=== PATIENT | female | born 1990 | race Caucasian/White ===

== ENCOUNTER 2020-05-10 17:44 | Outpatient (CLI) | payer SELFPAY ==
[2020-05-10 18:05] LABS: Basophils % 0.4 %; Eosinophils # 0.3 10^3/uL (0.0-0.8); Eosinophils % 2.6 %; Hematocrit 44.1 % (37.0-47.0); Hemoglobin 14.4 g/dL (11.5-15.3); Lymphocytes # 3.4 10^3/uL (0.8-4.8); Lymphocytes % 34.4 %; Mean Corpuscular HGB Conc 32.7 g/dL (30.0-36.0); Mean Corpuscular Hemoglobin 29.6 pg (28.0-34.0); Mean Corpuscular Volume 90.6 fL (81-99); Mean Platelet Volume 10.8 fL (7.4-10.4); Monocytes # 0.7 10^3/uL (0.2-0.9); Monocytes % 6.6 %; Neutrophils # 5.5 10^3/uL (1.8-7.7); Neutrophils % 55.7 %; Nucleated Red Blood Cells % 0 %; Platelet Count 213 10^3/cmm (130-400); Red Blood Count 4.87 10^6/uL (4.1-5.3); Red Cell Distribution Width 12.2 % (12.1-15.1); White Blood Count 9.8 10^3/uL (4.0-10.0)
[2020-05-10 18:45] LABS: Alanine Aminotransferase 32 U/L (0-33); Albumin Level 4.6 g/dL (3.5-5.2); Alkaline Phosphatase 92 IU/L (35-105); Anion Gap 15.6 (5-19); Aspartate Amino Transferase 22 U/L (0-32); Blood Urea Nitrogen 9 mg/dL (6-20); Calcium 9.4 mg/dL (8.5-10.5); Carbon Dioxide 22 mmol/L (22-29); Chloride 102 mmol/L (98-107); Globulin 2.7 g/dL (1.3-4.6); Glomerular Filtration Rate 84.2 mL/min (90-130); Glucose 101 mg/dL (65-115); Lipase 25 U/L (13-60); Osmolality Calculated 278 mOsm/kg (285-295); Potassium 3.6 mmol/L (3.5-5.1); Sodium 136 mmol/L (136-145); Total Bilirubin 0.2 mg/dL (0.15-1.2); Total Protein 7.3 g/dL (6.6-8.7)
[2020-05-10 21:31] LABS: Erythrocyte Sedimentation Rate 3 mm/hr (0-15)
== END 2020-05-10 17:45 | disposition home or self-care (01) ==
LOC: LAB 17:46
PROVIDERS: PCP Family Medicine; Visit Provider Nurse Practitioner Family
DX: R10.30 Lower abdominal pain, unspecified (principal)
CPT/HCPCS: 36415; 80053; 83690; 85025; 85651

== ENCOUNTER 2020-05-12 17:32 | Outpatient (CLI) | payer SELFPAY | END 2020-05-12 17:33 | disposition home or self-care (01) | LOC: LAB 17:33 | PROVIDERS: PCP Family Medicine; Visit Provider Nurse Practitioner Family | DX: R10.30 Lower abdominal pain, unspecified (principal) | CPT/HCPCS: 82274; 87177; 87209; 87493; 87506 ==

== ENCOUNTER 2020-05-23 07:16 | Day surgery (SDC) | payer SELFPAY ==
[2020-05-22 11:41] VITALS: BMI 28.0
[2020-05-23 07:30] VITALS: BP 114/76; PULSE 85; RESP 18; TEMP 36.3; O2SAT 99
[2020-05-23] MEDS: sodium chloride 0.9% 1,000 ML 30 ML IV (07:41)
[2020-05-23 07:45] LABS: OR HCG Qualitative Urine Negative (Negative)
--- NOTE | 2020-05-23 07:57 | W.PM.OPSUD ---
Surgery/Procedure H&P Update DATE OF PROCEDURE: May 23, 2020 DATE H&P PERFORMED: 05/03/20 H&P UPDATE INFORMATION: I have reviewed H&P completed within last 30 days, I have examined patient prior to procedure and No changes to prior documentation PREOP DIAGNOSIS: Bleeding per rectum and bloating PRIMARY INDICATION FOR PROCEDURE: The same PLANNED PROCEDURE: Operation Date: 05/23/20 08:30 Proposed Procedures p EGD/Colon 50552 [id number] R10.13 K62.5(Not Applicable) - Yadiel York MD s Colonoscopy(Not Applicable) - Yadiel York MD
--- NOTE | 2020-05-23 08:01 | ANES.PREANE2 ---
Pre-Anesthetic Assessment Pre-Anesthetic Assessment: Height/Weight: Height 1.6 m Weight 71.668 kg Temp Pulse Resp BP Pulse Ox 97.4 F L 85 18 114/76 99 05/23/20 07:30 05/23/20 07:30 05/23/20 07:30 05/23/20 07:30 05/23/20 07:30 Preop Diagnosis: Bleeding per rectum Proposed Procedure: Operation Date: 05/23/20 08:30 Proposed Procedures p EGD/Colon 52098 44366 R10.13 K62.5(Not Applicable) - Yadiel York MD s Colonoscopy(Not Applicable) - Yadiel York MD Last intake: Intake Last Liquid Date 05/22/20 Last Liquid Time 23:00 Last Solid Date 05/21/20 Last Solid Time 22:00 Social: Social History: Tobacco and No alcohol Exam: Pre-Anes Outpt Exam: alert, oriented x 3, clear to auscultation bilaterally and regular rate & rhythm Airway: Submandibular: WNL Cervical ROM: WNL MP: 2 Dentition: Other (teeth ok) History/ROS: No significant history except as noted Pulmonary: Pulmonary: None reported CV/HEM: CV/HEM: None reported : : None reported Hepatic: Hepatic: None reported GI: GI: GERD (occ) Metabolic: Metabolic: None reported Musc/skel: Musc/skel: None reported Neuropsych: Neuropsych: None reported Anesthetic Plan: ASA status: 2 Anesthesia: Anesthesia Evaluation and MAC Risk of > 500 ml blood loss (7ml/kg in children): No Meds/Allergies Current Medications: Current Medications Generic Name Dose Route Start Last Admin Trade Name Freq PRN Reason Stop Dose Admin Sodium Chloride 1,000 mls @ 30 ml s/hr 05/23/20 07:30 05/23/20 07:41 Sodium Chloride 0.9% IV 30 mls/hr .Q24H THERESA Administration PFSH Anesthesia PFSH: Medical History Abdominal bloating Blood in the stool Family history of colon cancer Hemorrhoids Lower abdominal pain Family History Grandmother Cancer colon cancer Denies family history of Anesthesia complication Bleeding disorder Social History Smoking and tobacco status: current every day smoker Alcohol intake: never Adopted: No Caregiver/support person: Yes Lives independently: Yes Household members: spouse Housing: House Marital status: service: No Current occupational status: employed Current occupational exposures/hazards: No Pets and animals: No History of recent travel: No Sexually active: Yes Current gender identity: Female Neha/Denominational: Orthodox Female Reproductive History: Date of last menstrual period: 05/07/20 Data Anesthesia Other Labs: Laboratory Results - last 48 hr 05/23/20 07:43 Urine HCG, Qual Negative Cardiac Studies: No Data to Display
[2020-05-23] MEDS: ondansetron 2 mg/ML SDV 2 mL 4 MG IVP (08:07)
[2020-05-23 09:09] VITALS: BP 109/71; PULSE 86; RESP 14; TEMP 36.2; O2SAT 96
--- NOTE | 2020-05-23 09:12 | ANE.PACU2 ---
Inpatient post-anesthesia follow up: Airway intact: Yes Vital signs: Temperature 97.4 F Pulse Rate 85 Respiratory Rate 18 Blood Pressure 114/76 Pulse Oximetry 99 Oxygen Delivery Me thod Room Air Oxygen Flow Rate Fraction of Inspir ed Oxygen Hydration adequate: Yes Nausea and vomiting: Yes Pain level: 1 Mental status: Baseline
[2020-05-23 09:24] VITALS: BP 131/93; PULSE 80; RESP 18; TEMP 36.3; O2SAT 98
[2020-05-24 06:09] LABS: H. Pylori / CLO Test Negative
== END 2020-05-23 09:44 | disposition home or self-care (01) ==
PROVIDERS: Anesthesiology; PCP Family Medicine; Visit Provider Surgery
PROC: 0DJ08ZZ Inspection of Upper Intestinal Tract, Via Natural or Artificial Opening Endoscopic (ICD-10-PCS; CPT 43235; principal; 2020-05-23 08:30)
PROC: 0DJD8ZZ Inspection of Lower Intestinal Tract, Via Natural or Artificial Opening Endoscopic (ICD-10-PCS; CPT 45378; 2020-05-23 08:30)
DX: K62.5 Hemorrhage of anus and rectum (principal); R14.0 Abdominal distension (gaseous); K21.9 Gastro-esophageal reflux disease without esophagitis; K44.9 Diaphragmatic hernia without obstruction or gangrene; K29.70 Gastritis, unspecified, without bleeding; F17.210 Nicotine dependence, cigarettes, uncomplicated
CPT/HCPCS: 12345; 43239; 45378; 84703; 87077; J2405; J2704; J7030

== ENCOUNTER 2020-05-28 07:10 | Outpatient (CLI) | payer SELFPAY ==
--- NOTE | 2020-05-28 07:15 | US_ITS ---
WS: [id number] ULTRASOUND ABDOMEN LIMITED CLINICAL INFORMATION: FATTY DYSPEPSIA COMPARISON: None. FINDINGS: Liver Size: Normal. Craniocaudal length: 15.3 cm. Echogenicity: Normal. Surface nodularity: None. Mass (size and location): None. Bile ducts Intrahepatic ducts: Normal. Common bile duct diameter: 0.4 cm. Gallbladder Small amount of fluid adjacent to the gallbladder measuring 2.1 x 1.5 x 1.4 CM. Gallstones: None. Gallbladder sludge: None. Gallbladder wall thickening: None. Pericholecystic fluid: Trace Sonographic Guadarrama sign: Absent. Pancreas Normal as visualized. Right kidney: Normal. Hydronephrosis: None. Size: 10.5 cm x 4.3 cm x 3.9 cm. Abdominal aorta and IVC Visualized portions are normal. Ascites: None. US/US gall bladder [id number] IMPRESSION: 1. Small amount of fluid adjacent to the gallbladder measuring 2.1 x 1.5 x 1.4 cm. However no gallbladder wall thickening or cholelithiasis. Gallbladder func tion can be further evaluated with HIDA scan if indicated. 2. Normal common bile duct. 3. Abdomen otherwise normal
== END 2020-05-28 07:11 | disposition home or self-care (01) ==
LOC: RAD 07:11
PROVIDERS: PCP Family Medicine; Visit Provider Surgery
DX: R10.13 Epigastric pain (principal)
CPT/HCPCS: 76705

== ENCOUNTER 2020-06-08 09:11 | Outpatient (CLI) | payer SELFPAY ==
--- NOTE | 2020-06-08 10:00 | NM_ITS ---
WS: [id number] NUCLEAR MEDICINE HIDA SCAN WITH GALLBLADDER EJECTION FRACTION HISTORY: abdominal pain COMPARISON: Gallbladder ultrasound 05/28/2020 TECHNIQUE: The patient was intravenously injected with 8.8 mCi of TC99m Mebrofenin. Immediate imaging over the right upper quadrant was followed by 5 minute image and additional images for a total of 60 minutes. Normal uptake of radiotracer throughout the liver. Activity identified in the gallbladder at 50 minutes and well distended by 60 minutes. Activity in the proximal small bowel was seen by 20 minutes. Good washout of the radiotracer from the liver by 60 minutes. The patient then drank 8 ounces of Ensure Plus. Ejection fraction at 60 minutes was 44%. Normal GB ej ection fraction is 35-75%. Post fatty meal symptoms: None. NM/NM hepatobiliary w phar* [id number] IMPRESSION: 1. Normal HIDA scan. 2. Normal gallbladder ejection fraction.
== END 2020-06-08 09:12 | disposition home or self-care (01) ==
LOC: RAD 09:12
PROVIDERS: PCP Family Medicine; Visit Provider Surgery
DX: R10.9 Unspecified abdominal pain (principal)
CPT/HCPCS: 78227; A9537

== ENCOUNTER → 2022-01-21 10:34 | Outpatient (BNVA) | payer BC, MEDICAID, SELFPAY | PROVIDERS: PCP Family Medicine; Visit Provider Nurse Practitioner Women's Health | DX: N92.6 Irregular menstruation, unspecified (principal) | CPT/HCPCS: 81025; 84702; 85025; 86850; 86900 ==

== ENCOUNTER → 2022-02-11 10:39 | Outpatient (BNVA) | payer BC, MEDICAID, SELFPAY | PROVIDERS: PCP Family Medicine; Visit Provider Obstetrics & Gynecology | DX: Z34.90 Encounter for supervision of normal pregnancy, unspecified, unspecified trimester (principal) | CPT/HCPCS: 80307; 84315; 86592; 86762; 86803; 87086; 87340; 87806 ==

== ENCOUNTER → 2022-02-18 09:20 | Outpatient (BNVA) | payer BC, MEDICAID, SELFPAY | PROVIDERS: PCP Family Medicine; Visit Provider Obstetrics & Gynecology | DX: Z34.80 Encounter for supervision of other normal pregnancy, unspecified trimester (principal); Z12.4 Encounter for screening for malignant neoplasm of cervix | CPT/HCPCS: 84315; 87491; 87591; 87624 ==

== ENCOUNTER 2022-05-08 14:54 | Outpatient (CLI) | payer BC, MEDICAID, SELFPAY ==
--- NOTE | 2022-05-08 15:00 | US_ITS ---
WS: [id number] ULTRASOUND OB FOCUSED HISTORY: Follow-up anatomy scan. Reevaluate heart, cord insertion enhance. COMPARISON: 04/10/2022 Single intrauterine gestation in transverse presentation. head is on the maternal RIGHT. Cervix is closed measuring 4.8 cm. Placenta is anterior, no previa or abruption. Grade 1 placenta. Normal a mniotic fluid. heart rate at 136 BPM. Four-chamber heart and outflow tracts are negative. No abnormality is identified. Both hands are iden tified and normal position. Normal cord insertion [place]. US/[place] [id number] IMPRESSION: 1. Additional imaging of the heart including outflow tracts demonstrates no abnormality. 2. Both hands are identified. 3. Normal cord insertion.
== END 2022-05-08 14:55 | disposition home or self-care (01) ==
PROVIDERS: PCP Family Medicine; Visit Provider Obstetrics & Gynecology
DX: Z34.90 Encounter for supervision of normal pregnancy, unspecified, unspecified trimester (principal); Z36.3 Encounter for antenatal screening for malformations
CPT/HCPCS: 76805; 76816

== ENCOUNTER → 2022-06-03 13:04 | Outpatient (BNVA) | payer BC, MEDICAID, SELFPAY | PROVIDERS: PCP Family Medicine; Visit Provider Obstetrics & Gynecology | DX: Z34.90 Encounter for supervision of normal pregnancy, unspecified, unspecified trimester (principal) | CPT/HCPCS: 82950; 84315; 85027 ==

== ENCOUNTER → 2022-06-11 08:17 | Outpatient (BNVA) | payer BC, MEDICAID, SELFPAY | PROVIDERS: PCP Family Medicine; Visit Provider Obstetrics & Gynecology | DX: Z34.90 Encounter for supervision of normal pregnancy, unspecified, unspecified trimester (principal) | CPT/HCPCS: 82951; 82952 ==

== ENCOUNTER → 2022-06-30 09:40 | Outpatient (BNVA) | payer BC, MEDICAID, SELFPAY | PROVIDERS: PCP Family Medicine; Visit Provider Obstetrics & Gynecology | DX: Z34.80 Encounter for supervision of other normal pregnancy, unspecified trimester (principal) | CPT/HCPCS: 76816; 84315 ==

== ENCOUNTER → 2022-07-28 08:53 | Outpatient (BNVA) | payer BC, MEDICAID, SELFPAY | PROVIDERS: PCP Family Medicine; Visit Provider Obstetrics & Gynecology | DX: Z34.90 Encounter for supervision of normal pregnancy, unspecified, unspecified trimester (principal) | CPT/HCPCS: 84315; 87081 ==

== ENCOUNTER 2022-08-26 16:24 | Inpatient (IN) | payer BC, MEDICAID, SELFPAY ==
[2022-08-26] VITALS (47 sets, daily range): BP systolic 105–148; BP diastolic 59–98; PULSE 72–125; RESP 16–19; TEMP 36.2–36.8; O2SAT 98–100; BMI 29.4
[2022-08-26 16:21] LABS: Basophils % 0.3 %; Eosinophils # 0.1 10^3/uL (0.0-0.8); Eosinophils % 0.8 %; Hematocrit 34.3 % (37.0-47.0); Hemoglobin 11.8 g/dL (11.5-15.3); Lymphocytes # 2.4 10^3/uL (0.8-4.8); Lymphocytes % 20.7 %; Mean Corpuscular HGB Conc 34.4 g/dL (30.0-36.0); Mean Corpuscular Hemoglobin 30.3 pg (28.0-34.0); Mean Corpuscular Volume 88.2 fl (81-99); Mean Platelet Volume 11.4 fL (7.4-10.4); Monocytes # 0.6 10^3/uL (0.2-0.9); Monocytes % 4.8 %; Neutrophils # 8.56 10^3/uL (1.8-7.7); Neutrophils % 72.8 %; Nucleated Red Blood Cells % 0 %; Platelet Count 157 10^3/cmm (130-400); Red Blood Count 3.89 10^6/uL (4.1-5.3); White Blood Count 11.8 10^3/uL (4.0-10.0)
[2022-08-26] MEDS: fentaNYL 50 mcg/mL INJ 2mL IVP ×2 (20:06→21:11)
[2022-08-26] MEDS: dextrose 5%-lactated ringers 1,000 ML 125 ML IV (20:10)
[2022-08-26] MEDS: lactated ringers 1,000 ML 999 ML IV (21:10)
--- NOTE | 2022-08-26 22:28 | P.ANESASSM_ITS ---
Pre-Anesthetic Assessment Height/Weight: Height 1.6 m Weight 75.296 kg Temp Pulse Resp BP Pulse Ox O2 Del Method 97.2 F L 105 H 19 H 134/88 98 08/26/22 21:17 08/26/22 22:26 08/26/22 21:11 08/26/22 22:22 08/26/22 22:26 08/26/22 16:15 Preop Diagnosis: Bleeding per rectum and bloating Labor epidural Familial anesthetic complications: none Was Beta Vel taken within 24 hours: N/A Was Clonidine taken within 24 hours: N/A Social Tobacco and No alcohol Exam alert, oriented x 3, clear to auscultation bilaterally and regular rate & rhythm Airway Submandibular: within normal limits Cervical ROM: within normal limits Mallampati: Class II Pulmonary None reported CV/HEM None reported None reported Hepatic None reported GI Gastroesophageal Reflux Disease Metabolic None reported Musc/skel None reported Neuropsych None reported Anesthetic Plan ASA status: 2 Anesthesia: Anesthesia Evaluation, Eval. for regional block and Regional (specify below) Other: labor epidural Medications/Allergies Home Medications Medication Instructions Recorded Confirmed Last Taken Type prenat.vits,sebastian,upe-wwsu-rqrkn 1 tab PO DAILY 01/21/22 08/25/22 08/25/22 10:00 History acetaminophen 500 mg oral powder 1,000 mg PO Q6H PRN pain 02/11/22 08/25/22 Unknown History packet (Tylenol Extra Strength) pantoprazole 40 mg tablet,delayed 40 mg PO DAILY PRN gerd 06/03/22 08/25/22 Unknown History release (Protonix) breast pump (Pump In Style #1 ea 06/16/22 08/25/22 Unknown Rx Advanced breast pump) ferrous sulfate 325 mg (65 mg 325 mg PO BID 06/16/22 08/25/22 08/25/22 10:00 History iron) tablet,delayed release Allergies Allergy/AdvReac Type Severity Reaction Status Date / Time No Known Allergies Allergy Verified 08/25/22 08:51 Current Medications Generic Name Dose Route Start Last Admin Trade Name Mayank PRN Reason Stop Dose Admin Fentanyl 25 - 100 mcg 08/26/22 16:08 08/26/22 21:11 Fentanyl 50 Mcg/Ml Inj 2ml IVP 50 mcg Q1H PRN Administration SEVERE PAIN Dextrose/Lactated Ringer's 1,000 mls @ 125 mls/hr 08/26/22 16:15 08/26/22 20:10 Dextrose 5%-Lactated Ringers IV 125 mls/hr .Q8H THERESA Administration Lactated Ringer's 1,000 mls @ 999 mls/hr 08/26/22 21:10 08/26/22 21:10 Lactated Ringers IV 999 mls/hr .Q1H1M PRN Administration See label comments PFSH Anesthesia Medical History GERD (gastroesophageal reflux disease) Symptoms since her 20s which is controlled with as needed Protonix. No pertinent past medical history Denies diabetes, asthma, hypertension, seizures, DVT/PE PCP: None Surgical History H/O colonoscopy 2019---gastritis, GERD, hiatal hernia---by Dr. York at [facility] [place]---patient had endoscopy and colonoscopy. Colonoscopy was normal per patient Family History Mother Hypertension Grandmother Diabetes maternal great grandmother Colon cancer maternal great grandmother Denies family history of Ovarian cancer Heart disease Hypercholesteremia Breast cancer Uterine cancer Thyroid disease Stroke Social History Smoking and tobacco status: never smoked Female Reproductive History Date of last menstrual period: 05/07/20 : 4 Data Anesthesia : 08/26/22 15:40 Short CBC 08/26/22 Range/Units 15:40 WBC 11.8 H (4.0-10.0) 10^3/uL Hgb 11.8 (11.5-15.3) g/dL Hct 34.3 L (37.0-47.0) % MCV 88.2 (81-99) fl Plt Count 157 (130-400) 10^3/cmm Neut % (Auto) 72.8 % Neut # (Auto) 8.56 H (1.8-7.7) 10^3/uL Cardiac Studies: No Data to Display Anesthesia Procedures Date of Procedure 08/26/22 Epidural Time Out Performed: Yes Consents Signed: Procedure Consent Consent: from patient, risks and benefits reviewed and patient agrees to proceed Lumbar Level: L3-L4 Epidural position: sitting Epidural procedure: sterile prep of area, 1% lidocaine to numb the area, neg for paresthesia, test dose given, 1.5% xylocaine 1:200k epi (3ml), 0.2% Ropivacaine bolus ml (4 ml), no systemic response, sterile dressing applied, L.U.D. no apparent complications and 0.2% Ropiavacaine @ mls/hr (13ml/hr) Additional Comments: 100mcg fentanyl bolus Other Information catheter placed at 11 cm, negative for test dose, bolus given
[2022-08-27] VITALS (36 sets, daily range): BP systolic 110–137; BP diastolic 59–93; PULSE 72–196; RESP 15; TEMP 36.1–36.7
[2022-08-27] MEDS: oxytocin 30 UNIT/500 ML BAG 600 UNIT IV (01:31)
--- NOTE | 2022-08-27 02:03 | PM.OPHPUD ---
Labor & Delivery H&P Update Date of Procedure: August 27, 2022 Date H&P Performed: 08/25/22 H&P update information: I have reviewed H&P completed within last 30 days, I have examined patient prior to procedure and No changes to prior documentation Admission Diagnosis: Preop diagnosis: Bleeding per rectum and bloating Related Problem List Diagnoses (1) Anemia affecting in third trimester: (2) Cystic fibrosis carrier, antepartum: (3) Tobacco use affecting , antepartum: (4) Request for sterilization: (5) Supervision of normal :
--- NOTE | 2022-08-27 02:04 | PM.DELIVERY ---
Delivery Note: Date of delivery: August 27, 2022 Pre-delivery diagnoses: iup@ 40 weeks 3 days, induction for post dates. Post-delivery diagnoses: same, delivered Procedure: Delivering Physician: Sean Estimated blood loss (mL): 150 Findings: term female in the TALYA presentation with a tight nuchal cord Pre-Delivery Course: The patient was admitted for induction at term. She had AROM performed with clear fluid. She labored spontaneously after that. She received an epidural for pain management. She had complete cervical dilation and began pushing. Delivery: The patient had complete cervical dilation and began to push. The head delivered in the TALYA position over a second degree episiotomy under epidural anesthesia. The episiotomy was cut due to prolonged heart rate into the 60's. There was a tight nuchal cord. The shoulders and body delivered atraumatically, through the cord. She was unwrapped from the cord post delivery. The nose and mouth were bulb suctioned. The baby was placed onto the mother's abdomen. The cord was clamped and cut. The placenta delivered spontaneously. It was inspected and found to be intact. It was found to have velamentous insertion. Inspection of the perineum revealed no extension of the episiotomy. It was repaired in the usual fashion. Estimated blood loss 150 mL. Apgars on baby were 8 at 1 minute and 9 at 5 minutes. Weight of baby is 6 pounds 8 ounces. Mother and baby were stable post delivery. History History History 4 Term 2 0 Miscarriages/Ectopic 1 Living Children 2 Coding Level of Care Code Acute Software Applications Architect for [employer]
[2022-08-27] MEDS: HYDROcodone-acetaminophen 5-325 mg Tablet PO ×3 (06:57→19:26)
[2022-08-27] MEDS: ibuprofen 800 mg tablet PO ×3 (09:17→19:26)
[2022-08-27] MEDS: docusate sodium 100 mg Capsule PO ×2 (09:17→18:22)
[2022-08-27] MEDS: prenatal vitamin Capsule 1 CAP PO (09:17)
[2022-08-27 15:14] LABS: Hematocrit 30.7 % (37.0-47.0); Hemoglobin 10.7 g/dL (11.5-15.3); Mean Corpuscular HGB Conc 34.9 g/dL (30.0-36.0); Mean Platelet Volume 11.9 fL (7.4-10.4); Platelet Count 130 10^3/cmm (130-400); Red Blood Count 3.45 10^6/uL (4.1-5.3); White Blood Count 15.1 10^3/uL (4.0-10.0)
[2022-08-28] MEDS: HYDROcodone-acetaminophen 5-325 mg Tablet PO ×2 (02:15→10:08)
[2022-08-28 03:47] VITALS: BP 108/68; PULSE 75
[2022-08-28] MEDS: ibuprofen 800 mg tablet PO (07:37)
[2022-08-28] MEDS: prenatal vitamin Capsule 1 CAP PO (07:37)
[2022-08-28] MEDS: docusate sodium 100 mg Capsule PO (07:37)
--- NOTE | 2022-08-28 10:05 | P.DS_ITS ---
Discharge Providers Date of Admission: 08/26/22 16:24 Date of Discharge: August 28, 2022 Attending Provider at Admission: Bree Estrada MD Attending Provider at Discharge: Bree Estrada MD Primary Care Provider: Leidy Elder MD Diagnoses at Discharge Discharge Diagnosis (1) Anemia affecting in third trimester: Status: Acute (2) Cystic fibrosis carrier, antepartum: Status: Acute (3) Tobacco use affecting , antepartum: Status: Acute (4) Request for sterilization: Status: Acute (5) Supervision of normal : Status: Acute Reason for Visit Reason for Visit: induction Hospital Course Hospital Course The patient presented for induction at term. She had spontaneous delivery of a term female . She did well and was ready for discharge on day #1. Physical Exam Narrative: The patient is doing well. No concerns today Const: COMMON NORMALS: no acute distress, average body habitus, patient oriented x3, no limitations, healthy appearing, alert and well nourished GENERAL APPEARANCE: cooperative, comfortable, well kempt and well developed ORIENTATION/CONSCIOUSNESS: Yes awake, Yes oriented to person, Yes oriented to place and Yes oriented to time Resp: COMMON NORMALS: normal respiratory effort EFFORT & INSPECTION: Yes able to speak in complete sentences GI: COMMON NORMALS: Soft to palpation and non-tender PALPATION: Yes Soft to palpation Extremity: COMMON NORMALS: no calf tenderness Neuro: COMMON NORMALS: patient oriented x3 SENSORIUM/ORIENTATION: Yes alert, Yes oriented to person, Yes oriented to place and Yes oriented to time Psych: APPEARANCE: Yes well kempt Urinary Catheter Management: Bills Latex: Cath Placed During This Visit: yes, but has since been removed by the nurse Reason for Continuing Indwelling Catheter: Decision to DC Catheter Urinary Catheter Date of Insertion: 08/26/22 Urinary Catheter Time of Insertion: 22:50 Date Urinary Catheter Removed: 08/27/22 Time Urinary Catheter Discontinued: 01:09 Discharge Data Studies Completed and Pending Laboratory Results WBC 15.1 10^3/uL (4.0-10.0) H 08/27/22 13:45 RBC 3.45 10^6/uL (4.1-5.3) L 08/27/22 13:45 Hgb 10.7 g/dL (11.5-15.3) L 08/27/22 13:45 Hct 30.7 % (37.0-47.0) L 08/27/22 13:45 MCV 89.0 fl (81-99) 08/27/22 13:45 MCH 31.0 pg (28.0-34.0) 08/27/22 13:45 MCHC 34.9 g/dL (30.0-36.0) 08/27/22 13:45 RDW 14.0 % (12.1-15.1) 08/27/22 13:45 Plt Count 130 10^3/cmm (130-400) 08/27/22 13:45 MPV 11.9 fL (7.4-10.4) H 08/27/22 13:45 Neut % (Auto) 72.8 % 08/26/22 15:40 Lymph % (Auto) 20.7 % 08/26/22 15:40 [place] % (Auto) 4.8 % 08/26/22 15:40 Eos % (Auto) 0.8 % 08/26/22 15:40 Baso % (Auto) 0.3 % 08/26/22 15:40 Neut # (Auto) 8.56 10^3/uL (1.8-7.7) H 08/26/22 15:40 Lymph # (Auto) 2.4 10^3/uL (0.8-4.8) 08/26/22 15:40 [place] # (Auto) 0.6 10^3/uL (0.2-0.9) 08/26/22 15:40 Eos # (Auto) 0.1 10^3/uL (0.0-0.8) 08/26/22 15:40 Baso # (Auto) 0.0 10^3/uL (0.0-0.1) 08/26/22 15:40 Nucleated RBC % (auto) 0 % 08/26/22 15:40 Nucleated RBCs # 0.0 /100WBC 08/26/22 15:40 Vitals Last Vital Signs Temp 97.7 F 08/27/22 19:55 Pulse 75 08/28/22 03:47 Resp 15 08/27/22 05:19 BP 108/68 08/28/22 03:47 Pulse Ox 98 08/26/22 22:26 O2 Del Method 10/11/22 16:15 Discharge Plan Discharge Patient Disposition: Home Condition: Stable Prescriptions: New ibuprofen 800 mg Tablet 800 mg PO TID Qty: 30 0RF docusate sodium 100 mg Capsule 100 mg PO BID Qty: 60 0RF Continued prenat.vits,sebastian,[id number] Tablet 1 tab PO DAILY ferrous sulfate 325 mg (65 mg iron) tablet,delayed release (DR/EC) 325 mg PO BID (DME) breast pump [Pump In Style Advanced] Device See Rx Instructions .ROUTE .MEDSUPPLY Qty: 1 0RF Rx Instructions: As directed Tylenol Extra Strength 500 mg powder in packet 1,000 mg PO Q6H PRN (Reason: pain) Protonix 40 mg tablet,delayed release (DR/EC) 40 mg PO DAILY PRN (Reason: gerd) Discharge Orders: Discharge Order (Routine); Ordered 08/28/22 Ordered By: Bree Estrada Referrals: Bree Estrada MD [Physician] - 09/10/22 1:30 pm (You [address] Estrada will be October at 12:45 p.m.) Patient Instructions: Ibuprofen (By mouth), Laxative, Stool Softeners (By mouth), Depression (DC), Bleeding (DC), Preeclampsia and Eclampsia After Delivery (GEN), OB Discharge Report, OB Food/Drug Interaction Guide, Opioid Safety, OB Home Care, OB Vaginal Deliveries - [facility] Discharge Attestations Time Spent in Discharge Care*: less than 30 min Quality Metrics Clinical Quality Measures [ No reported AMI, CVA or VTE this stay] Coding Level of Care Code Acute Chg FW DC note Diagnoses Anemia affecting in third trimester O99.013 Cystic fibrosis carrier, antepartum O09.899; Z14.1 Tobacco use affecting , antepartum O99.330 Request for sterilization Z30.2 Supervision of normal Z34.90
[2022-08-28 10:20] VITALS: BP 123/83; PULSE 93; TEMP 36.6
[2022-08-28 11:15] VITALS: BP 123/83; PULSE 93; RESP 16; TEMP 36.6
--- NOTE | 2022-08-28 13:42 | ANE.PACU2 ---
Inpatient post-anesthesia follow up: Airway intact: Yes Vital signs: Temperature 97.9 F Pulse Rate 93 Respiratory Rate 15 Blood Pressure 123/83 Pulse Oximetry 98 Oxygen Delivery Me thod Room Air Oxygen Flow Rate Fraction of Inspir ed Oxygen Hydration adequate: Yes Nausea and vomiting: No Pain level: 1 Mental status: Baseline
== END 2022-08-28 11:15 | disposition home or self-care (01) | DRG 806 ==
LOC: OPOB 16:25 → OBGYN 16:25
PROVIDERS: Admitting Provider Obstetrics & Gynecology; PCP Family Medicine; Visit Provider Obstetrics & Gynecology
DX: O69.2XX0 Labor and delivery complicated by other cord entanglement, with compression, not applicable or unspecified (principal); O99.834 Other infection carrier state complicating childbirth; Z37.0 Single live birth; O48.0 Post-term pregnancy; Z3A.40 40 weeks gestation of pregnancy; O99.02 Anemia complicating childbirth; D64.9 Anemia, unspecified; O75.89 Other specified complications of labor and delivery; K21.9 Gastro-esophageal reflux disease without esophagitis; Z87.891 Personal history of nicotine dependence; Z14.1 Cystic fibrosis carrier
CPT/HCPCS: 36415; 51702; 59025; 59409; 85025; 85027; 96374; 96376; 99211; J2795; J3010

== ENCOUNTER 2022-10-14 07:31 | Day surgery (SDC) | payer BC, MEDICAID, SELFPAY ==
[2022-10-13 09:46] VITALS: BMI 26.6
[2022-10-14] VITALS (9 sets, daily range): BP systolic 119–141; BP diastolic 72–95; PULSE 54–65; RESP 16–18; TEMP 36.1–36.2; O2SAT 95–100
[2022-10-14 07:49] LABS: OR HCG Qualitative Urine Negative (Negative)
--- NOTE | 2022-10-14 08:07 | ANES.PREANE2 ---
Pre-Anesthetic Assessment Height/Weight: Height 1.6 m Weight 68.311 kg O2 Del Method 10/14/22 07:55 Preop Diagnosis: desires sterilization Operation Date: 10/14/22 08:30 Proposed Procedures p Laparoscopic bilateral salpingectomy 77005,Z30.2(Bilateral) - Bree Estrada MD Familial anesthetic complications: none Was Beta Vel taken within 24 hours: N/A Was Clonidine taken within 24 hours: N/A Last intake: Intake Last Liquid Date 10/13/22 Last Liquid Time 22:00 Last Solid Date 10/13/22 Last Solid Time 20:00 Social Tobacco and No alcohol Exam alert, oriented x 3, clear to auscultation bilaterally and regular rate & rhythm Airway Mallampati: Class I Dentition: full CV/HEM Hypertension GI Gastroesophageal Reflux Disease Anesthetic Plan ASA status: 2 Anesthesia: General Risk of > 500 ml blood loss (7ml/kg in children): No Medications/Allergies Home Medications Medication Instructions Recorded Confirmed Last Taken Type prenat.vits,sebastian,aka-vofr-sqpyt 1 tab PO DAILY 01/21/22 10/14/22 08/25/22 10:00 History acetaminophen 500 mg oral powder 1,000 mg PO Q6H PRN pain 02/11/22 10/14/22 10/13/22 History packet (Tylenol Extra Strength) pantoprazole 40 mg tablet,delayed 40 mg PO DAILY PRN gerd 06/03/22 10/14/22 Unknown History release (Protonix) breast pump (Pump In Style #1 ea 06/16/22 10/13/22 Unknown Rx Advanced breast pump) ibuprofen 800 mg tablet 800 mg PO TID #30 tabs 08/28/22 10/14/22 Unknown Rx hydrochlorothiazide 25 mg tablet 25 mg PO DAILY #30 tabs 09/10/22 10/14/22 Unknown Rx Allergies Allergy/AdvReac Type Severity Reaction Status Date / Time No Known Allergies Allergy Verified 10/14/22 07:42 [facility] Anesthesia Medical History GERD (gastroesophageal reflux disease) Symptoms since her 20s which is controlled with as needed Protonix. No pertinent past medical history Denies diabetes, asthma, hypertension, seizures, DVT/PE PCP: None Surgical History (Updated 10/13/22 @ 12:46 by Bree Estrada MD) H/O colonoscopy 2019---gastritis, GERD, hiatal hernia---by Dr. York [place] [facility] [place] had endoscopy and colonoscopy. Colonoscopy was normal per patient History of tubal ligation (~09/2022) Family History Mother Hypertension Grandmother Diabetes maternal great grandmother Colon cancer maternal great grandmother Denies family history of Ovarian cancer Heart disease Hypercholesteremia Breast cancer Uterine cancer Thyroid disease Stroke Female Reproductive History Date of last menstrual period: 11/16/21 Data Anesthesia Cardiac Studies: No Data to Display
[2022-10-14] MEDS: gabapentin 300 mg Capsule PO (08:10)
[2022-10-14] MEDS: phenazopyridine 100 mg Tablet 200 MG PO (08:10)
[2022-10-14] MEDS: sodium chloride 0.9% 1,000 ML 30 ML IV (08:10)
[2022-10-14] MEDS: CELEcoxib 200 mg Capsule 400 MG PO (08:10)
[2022-10-14] MEDS: acetaminophen 1,000 MG/100 ML PIGGYBACK 400 MG IV (08:11)
--- NOTE | 2022-10-14 09:05 | W.PM.OPSUD ---
Surgery/Procedure H&P Update DATE OF PROCEDURE: October 14, 2022 DATE H&P PERFORMED: 10/13/22 H&P UPDATE INFORMATION: I have reviewed H&P completed within last 30 days, I have examined patient prior to procedure and No changes to prior documentation PREOP DIAGNOSIS: desires sterilization PLANNED PROCEDURE: Operation Date: 10/14/22 08:30 Proposed Procedures p Laparoscopic bilateral salpingectomy 16634,Z30.2(Bilateral) - Bree Estrada MD Related Problem List Diagnoses (1) Request for sterilization:
[2022-10-14] MEDS: ceFAZolin 2,000 MG in sodium chloride 0.9% (plus) 50 ML 100 MG IV (09:07)
--- NOTE | 2022-10-14 10:29 | PM.OP ---
Operative Report Date of procedure: October 14, 2022 Pre-op diagnosis: Preop Diagnosis desires sterilization Post-op diagnosis: same Post-op findings: normal appearing uterus, tubes and ovaries Procedure done: laparoscopic bilateral salpingectomy Specimens removed/disposition: bilateral fallopian tubes to pathology Surgeon: Bree Estrada Anesthesia: General Estimated blood loss (mL): 10 IV fluids (mL): 800 Urine output (mL): 500 Complications: none Condition: stable Disposition: PACU Procedure: The patient was taken to the operating room where general anesthesia was administered and found to be adequate. She was prepped and draped in the normal sterile fashion in the dorsal lithotomy position in [facility]. A Bills catheter was placed. A weighted speculum was placed into the vagina and the anterior lip of the cervix grasped with a single-tooth tenaculum. A ZUMI uterine manipulator was placed. The gloves were changed and attention was turned to the laparoscopic portion of the case. A 5 mm infraumbilical incision was made. The 5 mm trocar was placed using the easy view trocar. Intra-abdominal placement was confirmed and CO2 gas was used to insufflate the abdomen. Using direct visualization and illumination of the abdominal wall, two 5 mm incisions were made low and lateral. One on the left and one on the right. The 5mm trochars were then placed under direct visualization. Using the uterine manipulator and the grasper, the fallopian tubes were identified. Using the laparoscopic cautery, the fallopian tube was clamped cauterized and cut. First on the right, then on the left. There was excellent hemostasis post removal of the bilateral tubes. Pictures were taken. All instruments were removed. The abdomen was desufflated. The incisions were closed with 4-0 Vicryl. 10 ml of 1/2% bupivicaine was used around the incisions. The patient tolerated the procedure well. Sponge lap and needle counts were correct x3. She was taken to the recovery room in stable condition.
--- NOTE | 2022-10-14 10:39 | PM.DCS ---
Discharge Providers Date of Admission: 10/14/22 Date of Discharge: October 14, 2022 Attending Provider at Admission: Dr. Estrada Attending Provider at Discharge: Bree Estrada MD Diagnoses at Discharge Discharge Diagnosis (1) Request for sterilization: Status: Acute Reason for Visit Reason for Visit: Encounter for sterilization Hospital Course Hospital Course The patient was admitted for surgery. She did well postoperatively and was ready for discharge. Physical Exam Urinary Catheter Management: Bills Latex: Cath Placed During This Visit: yes, but has since been removed by the nurse Urinary Catheter Date of Insertion: 10/14/22 Urinary Catheter Time of Insertion: 09:36 Date Urinary Catheter Removed: 10/14/22 Time Urinary Catheter Discontinued: 10:15 Discharge Data Studies Completed and Pending Pending at discharge Category Date Time Status Urine Culture Routine Lab 10/14/22 09:36 Received Pathology: Surgical [PTH] Routine Pth 10/14/22 10:06 Ordered Laboratory Results Urine HCG, Qual Negative (Negative) 10/14/22 07:41 Vitals Last Vital Signs Temp 97 F L 10/14/22 10:26 Pulse 65 10/14/22 10:36 Resp 16 10/14/22 10:36 BP 119/72 10/14/22 10:36 Pulse Ox 99 10/14/22 10:36 O2 Del Method 10/14/22 10:36 O2 Flow Rate 100 10/14/22 10:36 FiO2 7 10/14/22 10:36 Discharge Plan Discharge Patient Disposition: Home Condition: Stable Prescriptions: New hydrocodone-acetaminophen 5-325 mg tablet 1 tab PO Q4H Qty: 20 0RF Continued prenat.vits,sebastian,kvj-gptq-gvjmu Tablet 1 tab PO DAILY (DME) breast pump [Pump In Style Advanced] Device See Rx Instructions .ROUTE .MEDSUPPLY Qty: 1 0RF Rx Instructions: As directed Tylenol Extra Strength 500 mg powder in packet 1,000 mg PO Q6H PRN (Reason: pain) Protonix 40 mg tablet,delayed release (DR/EC) 40 mg PO DAILY PRN (Reason: gerd) hydrochlorothiazide 25 mg tablet 25 mg PO DAILY Qty: 30 2RF ibuprofen 800 mg Tablet 800 mg PO TID Qty: 30 0RF Discharge Orders: Discharge Order (Routine); Ordered 10/14/22 Ordered By: Bree Estrada Discharge Attestations Time Spent in Discharge Care*: less than 30 min Quality Metrics Clinical Quality Measures [ No reported AMI, CVA or VTE this stay] Coding Level of Care Code Acute Chg FW DC note Diagnoses Request for sterilization Z30.2
[2022-10-14] MEDS: HYDROcodone-acetaminophen 5-325 mg Tablet 1 TAB PO (11:13)
[2022-10-14] MEDS: ondansetron 2 mg/ML SDV 2 mL 4 MG IVP (11:21)
--- NOTE | 2022-10-14 16:21 | ANE.PACU2 ---
Inpatient post-anesthesia follow up: Airway intact: Yes Vital signs: Temperature 97.1 F Pulse Rate 54 Respiratory Rate 18 Blood Pressure 133/89 Pulse Oximetry 100 Oxygen Delivery Me thod Room Air Oxygen Flow Rate 100 Fraction of Inspir ed Oxygen 7 Hydration adequate: Yes Nausea and vomiting: No Pain level: 1 Mental status: Baseline
== END 2022-10-14 11:40 | disposition home or self-care (01) ==
PROVIDERS: Anesthesiology; Visit Provider Obstetrics & Gynecology
PROC: (CPT 58661; principal; 2022-10-14 08:30)
DX: Z30.2 Encounter for sterilization (principal); I10 Essential (primary) hypertension; K21.9 Gastro-esophageal reflux disease without esophagitis
CPT/HCPCS: 58661; 81025; 84703; 87086; 88302; J0131; J0690; J1100; J2405; J2704; J2710; J3010; J3490; J7030